=== PATIENT | male | born 1950 | race Caucasian/White ===

== ENCOUNTER 2017-07-02 14:52 | Emergency (ER) | payer MEDICARE, MEDICAID ==
[2017-07-02 19:48] VITALS: BMI 24.6
== END 2017-07-02 16:08 | disposition left against medical advice (07) ==
LOC: ED 14:52
DX: Z02.89 Encounter for other administrative examinations (principal); R10.9 Unspecified abdominal pain

== ENCOUNTER 2017-07-02 19:31 | Emergency (ER) | payer MEDICARE, MEDICAID ==
[2017-07-02 19:48] VITALS: BMI 24.6
[2017-07-02 19:51] VITALS: RESP 18
--- NOTE | 2017-07-02 20:35 | US ---
EXAM: US Abdomen Complete CLINICAL HISTORY: 67 years old, male; Pain; Abdominal pain; Generalized; Additional info: Ruq tenderness TECHNIQUE: Real-time ultrasound of the abdomen (complete) with image documentation. COMPARISON: No relevant prior studies available. FINDINGS: Liver: Fatty infiltration. No mass. No intrahepatic ductal dilatation. Gallbladder: Gallstone. No wall thickening. No pericholecystic fluid. No sonographic Walker's sign. Common bile duct: No dilatation. No stones. Pancreas: Obscured by overlying bowel gas. Kidneys: Normal echogenicity. 1.3 cm left renal calculus. No hydronephrosis. Spleen: No splenomegaly. Aorta: Unremarkable. No aneurysm. Inferior vena cava: Unremarkable. Free fluid: No significant free fluid. IMPRESSION: 1. Cholelithiasis. 2. Incidental/non-acute findings are described above.
[2017-07-02 21:00] LABS: BASO # 0.03 K/mm3 (0.0-2.0); BASO % 0.4 % (0.0-3.0); EOS # 0.3 (0.0-0.7); EOS % 3.9 % (1.5-5.0); GRAN # 4.36 (1.4-6.5); GRAN % 60.8 % (50.0-68.0); HEMOGLOBIN 16.7 g/dL (14.0-18.0); LYMPH # 1.9 (1.2-3.4); LYMPH % 27.1 % (22.0-35.0); MEAN CELL VOLUME 83.7 fl (80.0-105.0); MEAN CORPUSCULAR HEMOGLOBIN 29.6 pg (25.0-35.0); MEAN CORPUSCULAR HGB CONC 35.3 g/dl (31.0-37.0); MEAN PLATELET VOLUME 9.2 fl (7.0-11.0); MONO # 0.6 (0.1-0.6); MONO % 7.8 % (1.0-6.0); RBC 5.65 10^6/uL (3.5-6.1); RED CELL DISTRIBUTION WIDTH 13.8 % (11.5-14.5); WHITE BLOOD COUNT 7.2 10^3/ul (4.5-11.0)
[2017-07-02 21:08] LABS: PH,URINE 6.5 (4.7-8.0); URINE BILIRUBIN NEGATIVE (NEGATIVE); URINE BLOOD TRACE-INTACT (NEGATIVE); URINE GLUCOSE (UA) NEGATIVE (NEGATIVE); URINE LEUKOCYTE ESTERASE SMALL Leu/uL (NEGATIVE); URINE NITRATE NEGATIVE (NEGATIVE); URINE PROTEIN NEGATIVE mg/dL (<30 mg/dL); URINE UROBILINOGEN 0.2 E.U./dL (<1 E.U./dL)
[2017-07-02 21:18] LABS: URINE APPEARANCE SL CLOUDY (CLEAR); URINE COLOR YELLOW (YELLOW)
[2017-07-02 21:27] LABS: URINE RBC 0 - 2 /hpf (0-2)
[2017-07-02 21:43] LABS: ALB/GLOB RATIO 1.3 (1.1-1.8); ALBUMIN 4.5 g/dL (3.0-4.8); ALT/SGPT 32 U/L (7-56); AMYLASE 128 U/L (35-125); AST/SGOT 20 U/L (17-59); BLOOD UREA NITROGEN 4 mg/dL (7-21); GFR AFRICAN-AMERICAN > 60; GFR NON-AFRICAN AMERICAN > 60; LIPASE 649 U/L (23-300)
--- NOTE | 2017-07-02 22:06 | ED PDOC ---
Arrival/HPI - General Chief Complaint: Abdominal Pain Time Seen by Provider: 07/02/17 19:41 Historian: Patient - History of Present Illness Narrative History of Present Illness (Text): 07/02/17 19:50 A 67 year old male, whose past medical history includes hypertension, asthma, and diabetes type 2, presents to the emergency department after being sent by PMD for RUQ tenderness for past few days. Patient reports also experiencing nausea, vomiting, and decreased appetite. Patient denies any fever, bloody stool , hematuria, or any other complaints. PMD: Dr. Carlton Martinez Time/Duration: < week (few days) Symptom Onset: Sudden Symptom Course: Unchanged Past Medical History - Provider Review Nursing Documentation Reviewed: Yes - Infectious Disease Hx of Infectious Diseases: None - Cardiac Hx Hypertension: Yes - Pulmonary Hx Asthma: Yes - Endocrine/Metabolic Hx Diabetes Mellitus Type 2: Yes - Psychiatric Hx Depression: No Hx Emotional Abuse: No Hx Physical Abuse: No Hx Substance Use: No - Surgical History Hx Appendectomy: Yes Other/Comment: L eye biopsy - Anesthesia Hx Anesthesia: Yes Hx Anesthesia Reactions: No Hx Malignant Hyperthermia: No - Suicidal Assessment Feels Threatened In Home Enviroment: No Family/Social History - Physician Review Nursing Documentation Reviewed: Yes Family/Social History: No Known Family HX Smoking Status: Heavy Smoker > 10 Cigarettes Daily Hx Alcohol Use: No Hx Substance Use: No Hx Substance Use Treatment: No Allergies/Home Meds Allergies/Adverse Reactions: Allergies No Known Allergies Allergy (Verified 12/26/11 17:51) Home Medications: Home Meds Medication Instructions Recorded Confirmed Aspirin [Aspirin Chewable] 1 tab PO DAILY 07/02/17 07/02/17 Atorvastatin [Lipitor] 1 tab PO HS 07/02/17 07/02/17 Diclofenac Sodium [Voltaren] 1 appl TOP DAILY 07/02/17 07/02/17 MetFORMIN [glucoPHAGE] 1 tab PO DAILY 07/02/17 07/02/17 SITagliptin [Januvia] 1 tab PO DAILY 07/02/17 07/02/17 Salmeterol Xinafoate/Fluticaso 1 puff IH DAILY 07/02/17 07/02/17 [Advair Hfa 115/21] Sevelamer Carbonate [Renvela] 1 packet PO DAILY 07/02/17 07/02/17 Tiotropium [place] [Spiriva 1 puff IH DAILY 07/02/17 07/02/17 Respimat] Review of Systems - Physician Review All systems were reviewed & negative as marked: Yes - Review of Systems Constitutional: absent: Fevers Gastrointestinal: Abdominal Pain (setn by PMD for RUQ tenderness), Nausea, Vomiting, Appetite Changes (decreased appetite). absent: Stool Changes (no bloody stool) Genitourinary Male: absent: Hematuria Physical Exam Vital Signs Reviewed: Yes Vital Signs Temp Pulse Resp BP Pulse Ox 07/02/17 22:26 97.9 F 72 18 159/68 H 99 07/02/17 22:23 97.9 F 72 18 159/68 H 99 07/02/17 19:50 97.6 F 76 18 165/93 H 98 Temperature: Afebrile Blood Pressure: Hypertensive Pulse: Regular Respiratory Rate: Normal Appearance: Positive for: Well-Appearing Pain Distress: None Mental Status: Positive for: Alert and Oriented X 3 - Systems Exam Head: Present: Atraumatic, Normocephalic Pupils: Present: PERRL Extroacular Muscles: Present: EOMI Conjunctiva: Present: Normal Mouth: Present: Moist Mucous Membranes Neck: Present: Normal Range of Motion Respiratory/Chest: Present: Clear to Auscultation, Good Air Exchange. No: Respiratory Distress, Accessory Muscle Use Cardiovascular: Present: Regular Rate and Rhythm, Normal S1, S2. No: Murmurs Abdomen: Present: Normal Bowel Sounds. No: Tenderness, Distention, Peritoneal Signs Back: Present: Normal Inspection Upper Extremity: Present: Normal Inspection. No: Cyanosis, Edema Lower Extremity: Present: Normal Inspection. No: Edema Neurological: Present: GCS=15, CN II-XII Intact, Speech Normal Skin: Present: Warm, Dry, Normal Color. No: Rashes Psychiatric: Present: Alert, Oriented x 3, Normal Insight, Normal Concentration Medical Decision Making ED Course and Treatment: 07/02/17 19:53 Impression: 67 year old male sent by PMD for RUQ tenderness. Physical exam is unremarkable. Plan: -- Abdominal Ultrasound -- Labs -- Urinalysis -- Urine Culture -- Reassess and disposition Progress Notes: 07/02/2017 20:35 Abdominal Ultrasound FINDINGS: Liver: Fatty infiltration. No mass. No intraheptic ductal dilatation. Gallbladder: Gallstone. No wall thickening. No pericholecystic fluid. No sonographic Walker's sign. Common bile duct: No dilatation. No stones. Pancreas: Obscured by overlying bowel gas. Kidneys: Normal echogenicity. 1.3 cm left renal calculus. No hydronephrosis. Spleen: No splenomegaly. Aorta: Unremarkable. No aneurysm. Inferior vena cava: Unremarkable. Free fluid: No significant free fluid. IMPRESSION: 1. Cholelithiasis. 2. Incidental/non-acute findings are described above. Dictator: David Duffy MD Leaving Against Medical Advice (AMA): The patient is choosing to leave against medical advice. I have personally explained to the patient that choosing to do so may result in permanent bodily harm or . I have discussed at great length that without further evaluation and monitoring there may be unforeseen circumstances and/or deterioration causing permanent bodily harm or as a result of their choice. The patient is alert, oriented, and shows the mental capacity to make clear decisions regarding the patients health care at this time. The patient continues to wish to leave against medical advice. In light of the patients decision to leave against medical advice, follow-up has been arranged and the patient is aware of the importance to following up as instructed. The patient has been advised that they should return to the emergency room immediately if they change their mind at any time, or if their condition begins to change or worsen in any way. - Lab Interpretations Lab Results: 07/02/17 20:35 07/02/17 21:07 Lab Results 07/02/17 21:07: Sodium 130 L, Potassium 4.6, Chloride 90 L, Carbon Dioxide 28, Anion Gap 16, BUN 4 L, Creatinine 0.6 L, Est GFR ( Amer) > 60, Est GFR ( Non-Af Amer) > 60, Random Glucose 118 H, Calcium 10.0, Total Bilirubin 0.5, AST 20, ALT 32, Alkaline Phosphatase 96, Total Protein 8.0, Albumin 4.5, Globulin 3.5, Albumin/Globulin Ratio 1.3, Amylase 128 H, Lipase 649 H 07/02/17 21:02: Urine Color Yellow, Urine Appearance Sl cloudy, Urine pH 6.5, Ur Specific [place] 1.010, Urine Protein Negative, Urine Glucose (UA) Negative, Urine Ketones Negative, Urine Blood Trace-intact H, Urine Nitrate Negative, Urine Bilirubin Negative, Urine Urobilinogen 0.2, Ur Leukocyte Esterase Small H , Urine RBC 0 - 2, Urine WBC 2 - 5 07/02/17 20:35: WBC 7.2, RBC 5.65, Hgb 16.7, Hct 47.3, MCV 83.7, MCH 29.6, MCHC 35.3, RDW 13.8, Plt Count 164, MPV 9.2, Gran % 60.8, Lymph % (Auto) 27.1, [place] % (Auto) 7.8 H, Eos % (Auto) 3.9, Baso % (Auto) 0.4, Gran # 4.36, Lymph # 1.9, [place] # 0.6, Eos # 0.3, Baso # 0.03 I have reviewed the lab results: Yes - RAD Interpretation Radiology Orders: 07/02/17 19:53 ABDOMEN COMPLETE [US] Stat - Scribe Statement The provider has reviewed the documentation as recorded by the Aj Abrams Provider Scribe Attestation: All medical record entries made by the Scribe were at my direction and personally dictated by me. I have reviewed the chart and agree that the record accurately reflects my personal performance of the history, physical exam, medical decision making, and the department course for this patient. I have also personally directed, reviewed, and agree with the discharge instructions and disposition. Disposition/Present on Arrival - Present on Arrival Any Indicators Present on Arrival: No History of DVT/PE: No History of Uncontrolled Diabetes: No Urinary Catheter: No History of Decub. Ulcer: No History Surgical Site Infection Following: None - Disposition Have Diagnosis and Disposition been Completed?: Yes Diagnosis: Pancreatitis Disposition: AGAINST MEDICAL ADVICE Disposition Time: 22:15 Condition: GUARDED Discharge Instructions (ExitCare): Pancreatitis (ED) Additional Instructions: Thank you for letting us take care of you today. The emergency medical care you received today was directed at your acute symptoms. If you were prescribed any medication, please fill it and take as directed. It may take several days for your symptoms to resolve. Return to the Emergency Department if your symptoms worsen, do not improve, or if you have any other problems. Please contact your doctor or call one of the physicians/clinics you have been referred to that are listed on the Patient Visit Information form that is included in your discharge packet. Bring any paperwork you were given at discharge with you along with any medications you are taking to your follow up visit. Our treatment cannot replace ongoing medical care by a primary care provider (PCP) outside of the emergency department. Thank you for allowing the [facility] team to be part of your care today. Follow up with your doctor in 1-2 days for re-evaluation and further management. Prescriptions: Ondansetron ODT [Zofran ODT] 4 mg PO Q8 PRN #20 odt PRN Reason: Nausea/Vomiting Referrals: Carlton Martinez MD [Primary Care Provider] - Follow up with primary Forms: [employer] (Malagasy)
[2017-07-02 22:24] VITALS: BP 159/68; PULSE 72; TEMP 97.9; O2SAT 99
== END 2017-07-02 22:29 | disposition left against medical advice (07) ==
LOC: ED 19:31
DX: K85.90 Acute pancreatitis without necrosis or infection, unspecified (principal); I10 Essential (primary) hypertension; E11.9 Type 2 diabetes mellitus without complications; F17.210 Nicotine dependence, cigarettes, uncomplicated